=== PATIENT | female | born 1995 | race Caucasian/White ===

== ENCOUNTER 2017-10-25 16:32 | Emergency (ER) | payer OTHER ==
[2017-10-25 16:43] VITALS: TEMP 98.2
--- NOTE | 2017-10-25 19:04 | EDPHY ---
H & P Stated Complaint: Increased anxiety w/school starting;off PS meds/taking herbals Time Seen by Provider: 10/25/17 18:24 - Personal History LMP (Females 10-55): 15-21 Days Ago Current Tetanus Diphtheria and Acellular Pertussis (TDAP): Yes - Medical/Surgical History Hx Asthma: No Hx Chronic Respiratory Disease: No Hx Diabetes: No Hx Cardiac Disease: No Hx Renal Disease: No Hx Cirrhosis: No Hx Alcoholism: No Hx HIV/AIDS: No Hx Splenectomy or Spleen Trauma: No Other PMH: Bipolar, Borderline Personality Disorder. anxiety - Social History Smoking Status: Current every day smoker Constitutional: Initial Vital Signs Temperature (C) 36.8 C 10/25/17 16:40 Heart Rate 104 H 10/25/17 16:40 Respiratory Rate 18 10/25/17 16:40 Blood Pressure 122/76 H 10/25/17 16:40 O2 Sat (%) 100 10/25/17 16:40 O2 Delivery Mode Room Air Allergies/Adverse Reactions: No Known Allergies Allergy (Verified 10/25/17 16:38) Home Medications: Medication Instructions Recorded Escitalopram Oxalate [Lexapro] 10 mg PO DAILY #30 tab 10/25/17 traZODone [traZODONE 50MG (*)] 50 mg PO HS #30 tab 10/25/17 Medical Decision Making ED Course/Re-evaluation: CHIEF COMPLAINT: Anxiety, rapid heart rate HISTORY OF PRESENT ILLNESS: The patient is a 22 y/o female with a history of anxiety and bipolar disorder complaining of rapid heart rate today and worsening anxiety over the last several days. She has been on multiple medications for anxiety in the past, but decided to discontinue these and instead treat it homeopathically. Between this and the start of the semester, she is feeling worse and more anxious. Today she felt extremely anxious and felt her heart beating rapidly and hard. She denies dyspnea, nausea, vomiting, diaphoresis, or other complaints. No recent illness or trauma. She is otherwise healthy. REVIEW OF SYSTEMS: A 10 point review of systems was performed and is negative with the exception of the elements mentioned in the history of present illness. PHYSICAL EXAM: HR, BP, O2 Sat, RR. Temp noted General Appearance: Alert, well hydrated, appropriate, and non-toxic appearing. Head: Atraumatic without scalp tenderness or obvious injury Eyes: Pupils equal, round, reactive to light and accommodation, EOMI, no trauma , no injection. Nose: Atraumatic, no rhinorrhea, clear. Throat: Mucus membranes moist. Neck: Supple,non-tender, no lymphadenopathy. Respiratory: No retractions, no distress, no wheezes, and no accessory muscle use. Lungs are clear to auscultation bilaterally. Cardiovascular: Regular rate and rhythm, no murmurs, rubs, or gallops. Good capillary refill all extremities. Gastrointestinal: Abdomen is soft, non-tender, non-distended, no masses, no rebound, no guarding, no peritoneal signs. Musculoskeletal: Normal active ROM of all extremities, atraumatic. Neurological: Alert, appropriate, and interactive. The patient has non-focal cranial nerves, motor, sensory, and cerebellar exam. Skin: No rashes, good turgor, no nodules on palpation. PAST MEDICAL HISTORY: Anxiety, depression, bipolar PAST SURGICAL HISTORY: Noncontributory. SOCIAL HISTORY: From [place]. Friend at bedside. Smoker DIAGNOSTICS/PROCEDURES/CRITICAL CARE TIME: The 12 lead EKG was interpreted by myself. Sinus mechanism. See hard copy and/ or "tracemaster" electronic copy for interpretation. DIFFERENTIAL DIAGNOSIS: The differential diagnosis for the patient's anxiety included but was not limited to anxiety, functional and major depression, situational depression, medication side effect, drugs, and alcohol abuse. MEDICAL DECISION MAKING: This is a 22 y/o female with a history of anxiety who presents for evaluation of anxiety and sensation of a rapid heart rate. Symptoms have been worsening since discontinuing medications and she would like to restart them today. Exam unremarkable. EKG is normal and by history I do not have a high suspicion for cardiac etiology causing her symptoms. Discussed medication options and what has worked for her before. Plan for discharge on Lexapro and Trazadone with outpatient mental health resources. She is comfortable with this plan. Return precautions discussed. Departure - Departure Disposition: Home, Routine, Self-Care Clinical Impression: Anxiety Condition: Good Instructions: Anxiety (ED) Additional Instructions: 1. Take Lexapro as prescribed. 2. Use Trazodone as prescribed when needed to sleep. 3. [facility] the next week to establish [facility] care care while in the [facility]. 4. Return to the ED for worsening of condition. Referrals: [facility] [Clinic] - As per Instructions Prescriptions: Escitalopram Oxalate [Lexapro] 10 mg PO DAILY #30 tab traZODone [traZODONE 50MG (*)] 50 mg PO HS #30 tab Report Scribed for: Carl Castillo Report Scribed by: Kellee Villafuerte Date of Report: 10/25/17 Time of Report: 19:05
--- NOTE | 2017-10-25 19:09 | CPEKG ---
Heart Rate: 92 RR Interval: 652 P-R Interval: 132 QRSD Interval: 78 QT Interval: 360 QTC Interval: 446 P [place]: 50 QRS [place]: 58 T Wave [place]: 13 EKG Severity - BORDERLINE ECG - EKG Impression: SINUS RHYTHM EKG Impression: BORDERLINE T ABNORMALITIES, ANTERIOR LEADS Electronically Signed By: Carl Castillo 25-Oct-2017 19:44:02
[2017-10-25 19:29] VITALS: BP 118/72; PULSE 69; RESP 16; O2SAT 96
== END 2017-10-25 19:30 | disposition home or self-care (01) ==
DX: F41.9 Anxiety disorder, unspecified (principal); F17.200 Nicotine dependence, unspecified, uncomplicated

== ENCOUNTER 2017-11-03 17:45 | Emergency (ER) | payer OTHER ==
--- NOTE | 2017-11-03 18:14 | CPEKG ---
Heart Rate: 122 RR Interval: 492 P-R Interval: 128 QRSD Interval: 78 QT Interval: 316 QTC Interval: 451 P [place]: 60 QRS [place]: 60 T Wave [place]: -11 EKG Severity - BORDERLINE ECG - EKG Impression: SINUS TACHYCARDIA EKG Impression: BORDERLINE T ABNORMALITIES, INFERIOR LEADS Electronically Signed By: Arina Apple 03-Nov-2017 22:43:39
--- NOTE | 2017-11-03 18:17 | EDPHY ---
HPI/HX/ROS/PE/MDM Narrative: CHIEF COMPLAINT: Tachycardia, lightheadedness HISTORY OF PRESENT ILLNESS: This patient is a 22 year old female complaining of tachycardia and a feeling of near syncope. She was evaluated last week in this emergency department for tachycardia, and thought this may be due to her anxiety. At that evaluation, the patient had a EKG demonstrating normal sinus rhythm with a rate in the 90s. She made an appointment with her [facility] physician, which is scheduled for tomorrow. She has had similar symptoms for several weeks. At her ED visit she was discharged with prescriptions for Trazodone and Lexapro. She states she has taken Trazodone for sleep since age 17. She has not taken the Lexapro and states she doesn't like taking prescription psychiatric medications. Today, she had dizziness and lightheadedness as if she was about to faint. She reports her heart rate felt extremely fast with occasional "sinking feeling ". This began about two hours prior to arrival, during class. This is new for her. No syncope. The patient states she has bulimia and that she most recently vomited today around 1:00pm. No fever, chills, chest pain, shortness of breath, diarrhea, urinary complaints, headache. REVIEW OF SYSTEMS: Aside from elements discussed in the HPI, a comprehensive 10-point review of systems was reviewed and is negative. PAST MEDICAL HISTORY: Anxiety, depression, bipolar, bulimia SOCIAL HISTORY: Currently attempting to quit smoking cigarettes. Daily alcohol use. No marijuana use. No illicit drug use. From [place]. VITAL SIGNS: Reviewed by me. Tachycardic to 138 GENERAL: Well-developed, well-nourished, resting comfortably in no respiratory distress. HEENT: Atraumatic. Eyes: No icterus, no injection. Mouth: moist mucous membranes. No erythema or lesions. Neck: supple with no adenopathy. LUNGS: Clear to auscultation bilaterally, no wheezes, rhonchi or rales. CARDIAC: Regular tachycardia, no rubs, murmurs or gallops. ABDOMEN: Soft, nontender, nondistended, bowel sounds normal. BACK: No CVA tenderness. EXTREMITIES: No trauma. No edema. Range of motion is normal throughout. NEURO: Alert and oriented, grossly nonfocal. SKIN: Warm and dry, no rash. PSYCHIATRIC: Normal mentation, no agitation. Portions of this note were transcribed by a manager medical writing. I personally performed a history, physical exam, medical decision making, and confirmed accuracy of information the transcribed note. ED Course: 22 y/o female presents with tachycardia and an episode of near-syncope. Plan for EKG, labs including CBC, chemistries, troponin, UA. Plan to administer 1mg IV Ativan and 1L IV NS for symptom relief. 12-LEAD EKG: Please see the full report in [employer] [facility]. My interpretation: Normal sinus rhythm Patient has received a L normal saline 1 mg of Ativan. Labs are unremarkable. Normal potassium. Normal troponin. 20:15 Patient's heart rate remains elevated at 145. Urine tox screen was ordered as well as a 2nd L of normal saline and a 2nd mg of Ativan. Plan for additional labs including TSH. 2215: Patient's heart rate continues to remain elevated. Seems consistently to be right at 130s or 145. Continues to appear to be sinus on the monitor. I had the patient do a Valsalva maneuver to see if I could the uncover any flutter waves. Patient did have some response and her heart rate with vagal stimulation with a heart rate dropped to approximately 100. However, rate return to 130 quickly. 3rd L of normal saline was hung. 2300: Patient's heart rate does finally seem to be trending downward. She is noted to have heart rate as low as 106 on the monitor. 2330: Plan was made to discharge the patient from the hospital. Her heart rate is now in the low 110 range. Her course was discussed with the [facility] case management. Patient has an appointment tomorrow at the [facility]. She will follow up there. MDM: Differential diagnosis of the patient's presenting complaint was considered including but not limited to anxiety, dehydration, hyperthyroidism, drug or alcohol effect, drug or alcohol withdrawal, fever, SVT, atrial flutter and atrial fibrillation. - Data Points Laboratory Results: Laboratory Results 11/03/17 19:13 11/03/17 19:13 Medications Given: Discontinued Medications Diltiazem HCl (Cardizem 25 Mg/5 Ml Vial) 10 mg IVP ONCE ONE Stop: 11/03/17 22:31 Last Admin: 11/03/17 23:49 Dose: Not Given Sodium Chloride (Ns) 1,000 mls @ 0 mls/hr IV ONCE ONE; Wide Open PRN Reason: Protocol Stop: 11/03/17 18:34 Last Admin: 11/03/17 19:04 Dose: 1,000 mls Sodium Chloride (Ns) 1,000 mls @ 0 mls/hr IV ONCE ONE; Wide Open PRN Reason: Protocol Stop: 11/03/17 20:27 Last Admin: 11/03/17 20:33 Dose: 1,000 mls Sodium Chloride (Ns) 1,000 mls @ 0 mls/hr IV ONCE ONE; Wide Open PRN Reason: Protocol Stop: 11/03/17 22:31 Last Admin: 11/03/17 22:45 Dose: 1,000 mls Lorazepam (Ativan Injection) 1 mg IVP EDNOW ONE Stop: 11/03/17 18:34 Last Admin: 11/03/17 19:05 Dose: 1 mg Lorazepam (Ativan Injection) 1 mg IVP EDNOW ONE Stop: 11/03/17 20:16 Last Admin: 11/03/17 20:31 Dose: 1 mg General Time Seen by Provider: 11/03/17 18:17 Initial Vital Signs: Initial Vital Signs Temperature (C) 36.4 C 11/03/17 17:52 Heart Rate 138 H 11/03/17 17:52 Respiratory Rate 22 H 11/03/17 17:52 Blood Pressure 158/104 H 11/03/17 17:52 O2 Sat (%) 99 11/03/17 17:52 O2 Delivery Mode Room Air Allergies/Adverse Reactions: No Known Allergies Allergy (Verified 11/03/17 17:52) Home Medications: Medication Instructions Recorded Escitalopram Oxalate [Lexapro] 10 mg PO DAILY #30 tab 10/25/17 traZODone [traZODONE 50MG (*)] 50 mg PO HS #30 tab 10/25/17 Departure - Departure Disposition: Home, Routine, Self-Care Clinical Impression: Sinus tachycardia, Possible atrial flutter Condition: Good Instructions: Heart Palpitations (DC) Additional Instructions: Follow up with [facility] as previously scheduled. You are scheduled to see [facility] Bee on at the [facility]. Keep this appointment as scheduled. Be sure you bring the records from the emergency department with you. Your heart rate at discharge is in the 110 range. It is sinus. While you are in the emergency department, you had a heart rate which was between 130 and 140 for a good portion of the time. This may be due to anxiety, drug or alcohol use , drug or alcohol abuse, drug or alcohol withdrawal, or dehydration. Please drink plenty of fluid. Continue to take your trazodone for anxiety. Return to the emergency department or seek care urgently if you have fainting episodes, significant chest pain, vomiting, diarrhea, seizure, or other concerns. Referrals: NONE *PRIMARY CARE P,. [Primary Care Provider] - As per Instructions Report Scribed for: Arina Apple Report Scribed by: Lisseth Griffith Date of Report: 11/03/17 Time of Report: 18:17
[2017-11-03] MEDS ORDERED: NS 1,000 ML IV ONE ×3 (18:33→22:30)
[2017-11-03] MEDS ORDERED: LORazepam 2 MG/ML INJ IVP ONE ×2 (18:33→20:15)
[2017-11-03 19:17] LABS: PLATELET COUNT 271 10^3/uL (150-400)
[2017-11-03 21:09] VITALS: O2SAT 96
--- NOTE | 2017-11-03 21:35 | CPEKG ---
Heart Rate: 135 RR Interval: 444 P-R Interval: 148 QRSD Interval: 68 QT Interval: 284 QTC Interval: 426 P [place]: 71 QRS [place]: 65 T Wave [place]: -13 EKG Severity - BORDERLINE ECG - EKG Impression: SINUS TACHYCARDIA EKG Impression: BORDERLINE T ABNORMALITIES, DIFFUSE LEADS Electronically Signed By: Arina Apple 03-Nov-2017 22:43:34
[2017-11-03] MEDS ORDERED: DILTIAZEM 25 MG/5 ML VIAL IVP ONE (22:30)
[2017-11-03 22:55] VITALS: PULSE 107; RESP 16
[2017-11-04 00:05] VITALS: BP 138/79; TEMP 97.9
== END 2017-11-04 00:13 | disposition home or self-care (01) ==
LOC: UNDOADMOB 22:21
DX: R00.0 Tachycardia, unspecified (principal); F17.210 Nicotine dependence, cigarettes, uncomplicated; E86.9 Volume depletion, unspecified
CPT/HCPCS: 80305; 96374; J2060